=== PATIENT | male | born 1980 | race African-American/Black ===

== ENCOUNTER 2023-05-10 18:26 | Emergency (ER) | payer OTHER ==
[2023-05-10 21:15] LABS: Syphilis Antibody Nonreactive (Nonreactive); Syphilis Antibody Index 0.05 S/CO (<1.00 Non-Reactive)
== END 2023-05-10 19:51 | disposition home or self-care (01) ==
LOC: CSHERS 18:26
DX: R36.9 Urethral discharge, unspecified (principal); F17.210 Nicotine dependence, cigarettes, uncomplicated
CPT/HCPCS: 86780; 99283